=== PATIENT | female | born 1960 | race Caucasian/White ===

== ENCOUNTER 2021-02-21 09:52 | Day surgery (SDC) | payer OTHER ==
[~2021-02-21] VITALS: Ht 162.6 cm; Wt 62.5 kg
[2021-02-21 11:29] VITALS: BP 115/95; PULSE 61; TEMP 98.3
[2021-02-21] MEDS ORDERED: DESYREL DIVIDO150 M1 PO (11:34)
[2021-02-21] MEDS ORDERED: ZOLOFT 100MG100 MG PO (11:35)
[2021-02-21] MEDS ORDERED: NEURONTIN600 MG/TAB PO (11:35)
[2021-02-21] MEDS ORDERED: REQUIP 0.5MG0.5 MG PO (11:36)
[2021-02-21] MEDS ORDERED: BENADRYL25 M2 PO (11:36)
[2021-02-21] MEDS ORDERED: MUCINEX D 12001 TER PO (11:38)
[2021-02-21 13:00] VITALS: PULSE 65; TEMP 97
--- NOTE | 2021-02-21 13:00 | NUR ---
Patient arrives to [facility] via cart, accompanied by Endo RN Vanessa. She is alert and oriented. SHe ambulates to the chair in her room with steady gait. PIV to TKO. Monitoring is applied. VSS on room air. Unable to obtain BP, as patient is instructed multiple times to remain still for BP reading, acknowledges instruction, and fails to remain still. Attempted reading x3. Will reattempt at next BP check. She denies pain or nausea. Dr. Cummings clears her for a regular diet.
[2021-02-21 13:15] VITALS: BP 82/49; PULSE 55
--- NOTE | 2021-02-21 13:15 | NUR ---
Patient reports a history of parkinson's disease. BP reading is 82/49; IVF are open to gravity for BP support; she denies any dizziness/lightheadedness/symptoms. SHe is offered and receives toast and OJ to eat.
[2021-02-21 13:30] VITALS: BP 95/58; PULSE 66
--- NOTE | 2021-02-21 13:30 | NUR ---
Dr. Cummings comes and talks with the patient at this time.
--- NOTE | 2021-02-21 13:50 | NUR ---
Patient has met discharge criteria. Discharge instructions are discussed. She denies any questions and verbalizes understanding. PIV is removed with catheter intact and hemostasis achieved. She changes to her clothing independently. She is escorted to the exit via wheelchair by TERRENCE Alves. She is discharged to the care of her mom, who drives her home in a private vehicle at 1350.
== END 2021-02-21 13:50 | disposition home or self-care (01) ==
LOC: SDCO 09:52
DX: Z12.11 Encounter for screening for malignant neoplasm of colon (principal); D12.3 Benign neoplasm of transverse colon; K58.0 Irritable bowel syndrome with diarrhea; K21.9 Gastro-esophageal reflux disease without esophagitis; J44.9 Chronic obstructive pulmonary disease, unspecified; G25.81 Restless legs syndrome; J30.9 Allergic rhinitis, unspecified; G89.29 Other chronic pain; M54.5 Low back pain; F32.9 Major depressive disorder, single episode, unspecified; Z79.899 Other long term (current) drug therapy; Z86.010 Personal history of colon polyps; Z90.89 Acquired absence of other organs; Z90.49 Acquired absence of other specified parts of digestive tract
CPT/HCPCS: J2704; J7030

== ENCOUNTER 2021-02-25 10:06 | Emergency (ER) | payer OTHER ==
[~2021-02-25] VITALS: Ht 162.6 cm; Wt 61.4 kg
[~2021-02-25 10:06] MED LIST: BENADRYL25 M2 PO; DESYREL DIVIDO150 M1 PO; MUCINEX D 12001 TER PO; NEURONTIN600 MG/TAB PO; REQUIP 0.5MG0.5 MG PO; ZOLOFT 100MG100 MG PO
[2021-02-25 10:20] VITALS: TEMP 97.8
[2021-02-25 10:48] LABS: BASO % 0.5 % (0.0-2.0); EOS # 0.2 (0.0-0.7); GRAN # 5.1 (1.4-6.5); GRAN % 64.1 % (42.2-75.2); HEMATOCRIT 39.4 % (37.0-47.0); HEMOGLOBIN 13.1 g/dl (12.5-16.0); LYMPH # 2.2 (1.2-3.4); LYMPH % 27.2 % (20.0-51.0); MEAN CELL VOLUME 89 fl (80.0-100.0); MEAN CORPUSCULAR HEMOGLOBIN 29 pg (27.0-31.0); MEAN CORPUSCULAR HGB CONC 33 g/dl (33.0-37.0); MEAN PLATELET VOLUME 10.6 fl (7.4-10.4); MONO # 0.5 (0.1-0.6); PLATELET COUNT 194 K/mm3 (130-400); RED BLOOD COUNT 4.45 M/mm3 (4.10-5.30); REDCELL DISTRIBUTION WIDTH-CV 12.9 % (11.5-14.5)
[2021-02-25 10:56] LABS: ALANINE AMINOTRANSFERASE 12 U/L (4-34); ALBUMIN 4.1 gm/dL (3.5-5.0); ALKALINE PHOSPHATASE 59 U/L (50-136); ANION GAP 6 mmol/L (7-16); AST,SGOT 30 U/L (15-37); BILIRUBIN,TOTAL 0.5 mg/dL (0.0-1.0); BLOOD UREA NITROGEN 16 mg/dL (7-17); CALCIUM 9.1 mg/dL (8.4-10.2); CARBON DIOXIDE 26 mmol/L (22-30); CHLORIDE 105 mmol/L (98-107); CREATININE, serum 0.76 (0.52-1.25); GLUCOSE 89 mg/dL (74-106); POTASSIUM 3.9 mmol/L (3.4-5.0); SODIUM 138 mmol/L (137-145)
[2021-02-25 11:10] LABS: TROPONIN-I < 0.012 ng/mL (0.000-0.035)
[2021-02-25 11:12] LABS: INR 1.1 (0.8-3.0); PROTHROMBIN TIME 11.9 SECONDS (9.7-12.8)
[2021-02-25 11:15] LABS: PARTIAL THROMBOPLASTIN TIME 26.4 SECONDS (26.0-37.0)
[2021-02-25 11:41] LABS: COLLECTION METHOD CLEAN CATCH
[2021-02-25 11:56] LABS: MUCOUS Present /lpf; PH 7 (5-8); SQUAMOUS EPITHELIAL 0-2 /hpf; URINE APPEARANCE Clear; URINE BACTERIA Rare /hpf; URINE BILIRUBIN Negative (NEGATIVE); URINE BLOOD 1+ (NEGATIVE); URINE COLOR Yellow; URINE GLUCOSE Negative (NEGATIVE); URINE KETONE Negative (NEGATIVE); URINE LEUKOCYTE ESTERASE 3+ (NEGATIVE); URINE NITRATE Negative (NEGATIVE); URINE PROTEIN(semi-quant) Negative (NEGATIVE); URINE RBC 0-2 /hpf; URINE UROBILINOGEN Negative (NEGATIVE)
[2021-02-25 13:51] VITALS: BP 109/79; PULSE 74
== END 2021-02-25 14:44 | disposition home or self-care (01) ==
LOC: COL.ER 10:06
PROVIDERS: Emergency Medicine
DX: S09.90XA Unspecified injury of head, initial encounter (principal); K62.5 Hemorrhage of anus and rectum; R55 Syncope and collapse; X58.XXXA Exposure to other specified factors, initial encounter
CPT/HCPCS: C9113; J7030

== ENCOUNTER 2021-03-05 15:01 | Inpatient (IN) | payer OTHER ==
[~2021-03-05] VITALS: Ht 162.7 cm; Wt 58.7 kg
[2021-03-26] VITALS (10 sets, daily range): BP systolic 89–112; BP diastolic 35–65; PULSE 60–85; TEMP 97.9–98.7
--- NOTE | 2021-03-26 12:30 | NUR ---
Patient arrived to bed via bed. Patient alert and oriented. Denies pain and nausea. Lapsites to abdomen are intact. Explained ERAS protocol. Her BP has been in the 90's over 40-50's. She was low on admit. Provider aware. Encouraged her to do deep breathing exercises. IVF's infusing as ordered. No other changes at this time. Call light within reach.
--- NOTE | 2021-03-26 18:30 | NUR ---
Patient is doing better this afternoon with her BP. She has been up several times to void. Minimal complaints of pain. Pain controlled with scheduled medications at this time. No other changes at this time. Call light within reach.
--- NOTE | 2021-03-26 21:00 | NUR ---
Patient is sitting in bed, alert and oriented x 4. VSS, Reports pain of 10 out of 10 PRN provided. IV fluidis running at 75 ml/hr. IV dressing changed. 5 lap sites in the left side, clean and dry. Edges well approximated. Hypoactive bowel sounds. Assessment completed. No further needs at this time. Call light within reach.
[2021-03-27] VITALS (8 sets, daily range): BP systolic 90–138; BP diastolic 44–71; PULSE 62–123; TEMP 97.6–98.5
--- NOTE | 2021-03-27 07:02 | NUR ---
Patient has been complaining about pain. Scheduled medications provided. She visit the restromm several times. Reports had had some bowel movements. No further needs at this time. Shift report given to day nurse.
[2021-03-27 07:10] LABS: HEMOGLOBIN 11.6 g/dl (12.5-16.0)
[2021-03-27 07:13] LABS: HEMATOCRIT 35.1 % (37.0-47.0)
[2021-03-27 07:20] LABS: CALCIUM 8.7 mg/dL (8.4-10.2); CREATININE, serum 0.92 (0.52-1.25); MAGNESIUM 1.7 mg/dL (1.6-2.3); PHOSPHOROUS 3.3 mg/dL (2.5-4.5); POTASSIUM 3.8 mmol/L (3.4-5.0)
--- NOTE | 2021-03-27 09:30 | NUR ---
Patient has a student. Patient is doing well today. Stopped her fluids as she is eating and drinking without issues. Denies nausea and pain at this time. Encouraged her to walk in the hallways today. She asked about removing IV, explained that will be removed on discharge. No other changes at this time. Call light within reach.
--- NOTE | 2021-03-27 15:13 | NUR ---
SW met with patient at b/s to discuss needs at d/c. Patient states she lives in [place] and her 30 y.o. spec. needs son lives with her. Her parents also live 5 blocks away and her mother helps out when available. Patient works full-time, has no DME's and is fully independent. Patient has 2 other adult children (son & dtr who both live in [place]. Patient lost her in 2018, causing estranged relationship with her dtr. Patient named Dr. Tye Holder as her PCP but the paperwork has not been processed so she has not seen PCP yet. SW discussed DPOA with patient but she states she has no desire to begin that process. SW explained the importance of it and encouraged her to think about it. *D/C home - no needs
--- NOTE | 2021-03-27 18:30 | NUR ---
Patient has been doing well today. She stated she had bowel movements in the night but none today and continues to pas flatus. TOlerating diet without nausea or pain. She is hoping to discharge tomorrow. No other changes at this time. Call light within reach.
--- NOTE | 2021-03-27 19:31 | NUR ---
RECEIVED CHANGE OF SHIFT REPORT FROM DAY SHIFT NURSE.
--- NOTE | 2021-03-27 21:33 | NUR ---
PATIENT REFUSING SCHEDULED MOTRIN, AT THIS TIME. DENIES CHEST PAIN/SOA/NAUSEA AT THIS TIME. REPORTS PASSING FLATUS AND VOIDING WITH NO PROBLEMS.
--- NOTE | 2021-03-28 01:18 | NUR ---
PATIENT HAS BEEN REFUSING SCHEDULED MOTRIN AND TYLENOL MEDS THIS SHIFT SO FAR, WANTING TO GET INT SITE TAKEN OUT, INFORMED PATIENT INT WILL BE REMOVED WHEN SHE IS DISMISSED BY PROVIDER. DENIES ANY OTHER NEEDS OR CONCERNS.
[2021-03-28 04:11] VITALS: BP 125/61; PULSE 65; TEMP 97.3
--- NOTE | 2021-03-28 07:33 | NUR ---
CHANGE OF SHIFT REPORT GIVEN TO DAY SHIFT NURSE, MIKAEL OCAMPO.
--- NOTE | 2021-03-28 09:15 | NUR ---
Patient is discharging home. Discharge instructions discussed with patient. No questions verbalized. INT discontinued by student nurse. Her home medications were returned to her. Offered to give her morning medications before discharge, she stated she takes them at bedtime. Explained Aiden will call with follow up appointment time. Copies of discharge instructions sent with patient. All belongings packed up by patient and sent with her. Patient walked out via wheel chair by student nurse.
== END 2021-03-28 09:15 | disposition home or self-care (01) | DRG 331 ==
LOC: INPTSU 03-26 05:10 → SURG 03-26 07:30
PROVIDERS: ADMIT Surgery
PROC: 0DJW4ZZ Inspection of Peritoneum, Percutaneous Endoscopic Approach (ICD-10-PCS; 2021-03-26)
PROC: 4A1BXSH Monitoring of Gastrointestinal Vascular Perfusion using Indocyanine Green Dye, External Approach (ICD-10-PCS; 2021-03-26)
PROC: 8E0W8CZ Robotic Assisted Procedure of Trunk Region, Via Natural or Artificial Opening Endoscopic (ICD-10-PCS; 2021-03-26)
PROC: 0DTF4ZZ Resection of Right Large Intestine, Percutaneous Endoscopic Approach (ICD-10-PCS; principal; 2021-03-26 07:30)
DX: D12.3 Benign neoplasm of transverse colon (principal); Z20.822 Contact with and (suspected) exposure to COVID-19; Z90.710 Acquired absence of both cervix and uterus
CPT/HCPCS: A4314; A9284; J0690; J1100; J1170; J1650; J2250; J2405; J2704; J2795; J3010; J7120

== ENCOUNTER 2024-03-10 08:53 | Day surgery (SDC) | payer MEDICARE, OTHER ==
[~2024-03-10] VITALS: Ht 165.1 cm; Wt 74.0 kg
[~2024-03-10 08:53] MED LIST changes: +Ondansetron 4 MG/2 ML VIAL IV PRN
[2024-03-10] MEDS ORDERED: LR 1,000 ML IV ONE (09:00)
[2024-03-10 09:46] VITALS: BP 122/88; PULSE 71; TEMP 97.3
[2024-03-10] MEDS ORDERED: MELATONIN5 M1 PO (09:52)
[2024-03-10] MEDS ORDERED: TYLENOL 500MG500 MG PO (09:53)
[2024-03-10] MEDS ORDERED: VITAMIN D31000 I1 PO (09:54)
[2024-03-10] MEDS ORDERED: ADVIL200 MG PO (09:54)
[2024-03-10] MEDS ORDERED: B-121000 MCG PO (09:55)
[2024-03-10] MEDS ORDERED: NEURONTIN600 MG/TAB PO (09:56)
[2024-03-10] MEDS ORDERED: REQUIP2 MG PO (09:56)
[2024-03-10 10:55] VITALS: BP 114/67; PULSE 85; TEMP 97.3
[2024-03-10 11:10] VITALS: BP 101/64; PULSE 80
--- NOTE | 2024-03-10 13:21 | NUR ---
1055- Pt returns from procedure on cart. Ambulates to recliner chair with steady gait and assist of 2. Feet elevated on recliner. IV fluids infusing through right wrist IV site without complications. Denies complaints. 1100- Pt ambulates to bathroom with assist of one, urine void. 1110- Discharge instructions reviewed, questions answered. 1112- Dr. Cummings in room. 1118- IV site removed, patient dressed. 1120- Pt down to mothers car via w/c. Denies complaints.
== END 2024-03-10 11:20 | disposition home or self-care (01) ==
LOC: SDCO 08:53
DX: K62.1 Rectal polyp (principal); K21.00 Gastro-esophageal reflux disease with esophagitis, without bleeding; K31.7 Polyp of stomach and duodenum; K25.9 Gastric ulcer, unspecified as acute or chronic, without hemorrhage or perforation; R19.7 Diarrhea, unspecified; Z98.0 Intestinal bypass and anastomosis status; Z85.038 Personal history of other malignant neoplasm of large intestine
CPT/HCPCS: J2704; J7120